=== PATIENT | male | born 2005 | race Two or more races ===

== ENCOUNTER 2024-06-03 19:09 | Emergency (ER) | payer MEDICAID, SELFPAY ==
[2024-06-03 19:09] VITALS: BMI 33.4
[2024-06-03 19:37] VITALS: BP 148/79; PULSE 84; RESP 18; TEMP 36.9; O2SAT 97
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
[2024-06-03 22:27] VITALS: RESP 18
== END 2024-06-03 22:28 | disposition home or self-care (01) ==
PROVIDERS: Emergency Provider Emergency Medicine; PCP Family Medicine
DX: T14.8XXA Other injury of unspecified body region, initial encounter (principal); V89.2XXA Person injured in unspecified motor-vehicle accident, traffic, initial encounter
CPT/HCPCS: 99281